=== PATIENT | female | born 1995 | race Caucasian/White ===

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

== ENCOUNTER 2017-02-21 11:51 | Outpatient (CLI) | payer MEDICAID ==
[~2017-02-21] VITALS: Ht 157.5 cm; Wt 66.5 kg
[2017-02-21 12:12] VITALS: BP 132/73
[2017-02-21] MEDS ORDERED: PRENATAL PLUS1 TA1 PO (12:21)
[2017-02-21 13:03] LABS: URINE BILIRUBIN - DIPSTICK NEGATIVE (NEG); URINE BLOOD NEGATIVE (NEG)
[2017-02-21 13:43] LABS: AMPHETAMINES/METAMPHETAMINES NEGATIVE ng/mL (<1000)
== END 2017-02-21 14:00 | disposition home or self-care (01) ==
LOC: OB 11:51 → OBOUT 11:51 → OB 14:00
PROVIDERS: Obstetrics & Gynecology
DX: O26.892 Other specified pregnancy related conditions, second trimester (principal); Z3A.24 24 weeks gestation of pregnancy; W19.XXXA Unspecified fall, initial encounter